=== PATIENT | male | born 1960 | race Caucasian/White ===

== ENCOUNTER 2024-01-19 07:41 | Outpatient (CLI) | payer OTHER, SELFPAY ==
--- NOTE | 2024-01-22 19:55 | WPDHOMESLEEP ---
Sleep Study - Home Unattended Date of Study: 01/19/24 Ordering Provider: John Swanson, Interpreting Provider: Zoya Brown MD Home Sleep Study Type: Watch PAT Height: 1.7 m Weight: 136.078 kg Body Mass Index: 47.0 Neck Circumference (inches): 23 [place]: 9 Reason for Sleep Study Poor quality sleep, excessive daytime sleepiness, frequent night time awakenings Sleep History Toñito Hampton is a 63 year-old man with frequent nighttime awakenings and excessive daytime sleepiness. His mother had obstructive sleep apnea. The patient frequently awakens from sleep feeling short of breath. He does not awaken at night with heartburn, belching or coughing. He does not report snoring and no one tells him that he snores. He occasionally has trouble sleeping when he has a cold. He rarely wakes up gasping for breath at night. He frequently has breathing problems at night witnessed by others. He frequently sweats excessively at night. He occasionally falls asleep during the day, rarely falls asleep involuntarily, although he never falls asleep while driving. He rarely has loss of muscle tone with strong emotion. He does not have daytime difficulties due to excessive sleepiness. He rarely feels paralyzed on waking or falling asleep. He occasionally has vivid dreamlike scenes upon awakening or falling asleep. He rarely feels afraid to go to sleep. He denies having nightmares. He rarely remembers his dreams. He rarely has racing thoughts. He rarely feels sad or depressed. He does not notice parts of his body jerking nor does he kick at night. He constantly has crawling aching feelings in his legs and leg pain during the night. He does not have morning jaw pain. He constantly is bothered by pain during the day, constantly bothered by pain during the night which awakens him. He frequently wakes up feeling stiff in the morning. He constantly has sore, achy muscles and pain in the neck and spine. He has some memory problems, sexual problems, and headaches. Normal bedtime is 11:00 p.m. taking 1/2 hour to fall asleep typically waking between 2 and 3 times for 10-15 minutes to go to the bathroom. His normal wake time is 4:30 a.m.. On weekends, he goes to bed later, between 1:00 a.m. and 2:00 a.m. and his wake time is 8:00 a.m.. He sleeps longer on the weekends because he does not have to work. He does not take naps. On awakening he is drowsy for 3 hours or longer. He feels better in the morning compared to other times a day. Habits: Tobacco: former smoker Caffeine: 2 servings a day Alcohol: He drinks alcohol socially, not daily [facility] Past Medical History Medical History (Updated 01/22/24 @ 20:16 by Zoya Brown MD) Diabetes mellitus Elevated liver function tests Hypertension Osteoarthritis Surgical History Surgical History (Updated 10/30/23 @ 07:59 by Zuly Dillard CMA) History of hand surgery History of shoulder surgery Family History Family History (Updated 10/30/23 @ 07:59 by Zuly Dillard CMA) Mother Cancer Diabetes mellitus Father Cancer Social History Social History (Updated 10/30/23 @ 08:00 by Zuly Dillard CMA) Smoking status: Former smoker Alcohol intake: current Alcohol use details: socially Substance use type: does not use Do You Feel Safe in your Home?: Yes Lack of Transportation: No Current Housing: I Have Housing Concerned About Future Housing: No Difficulty Paying Gas/Electric Bills: No Difficulty Paying for Meds: Decline to Answer Currently Unemployed: No Education: High School Diploma/GED Difficulty w/ Childcare or Family Care: No Medications Home Medications Medication Instructions Recorded Confirmed Type ibuprofen 200 mg capsule 200 mg PO Q6H PRN 10/30/23 10/30/23 History naproxen sodium 220 mg capsule 220 mg PO BID PRN 10/30/23 10/30/23 History (Aleve) Sleep Procedure T
[2024-01-22 20:23] VITALS: BMI 47.0
== END 2024-01-21 10:47 | disposition home or self-care (01) ==
LOC: ANHCSM 07:43
PROVIDERS: PCP Internal Medicine; Visit Provider Internal Medicine
DX: G47.33 Obstructive sleep apnea (adult) (pediatric) (principal); G47.31 Primary central sleep apnea; G25.81 Restless legs syndrome; Z87.891 Personal history of nicotine dependence; Z79.1 Long term (current) use of non-steroidal anti-inflammatories (NSAID)
CPT/HCPCS: 95800

== ENCOUNTER 2024-03-29 14:45 | Outpatient (RCR) | payer OTHER, SELFPAY ==
[2023-12-30 09:32] VITALS: BMI 48.3
[2023-12-30 09:35] VITALS: BMI 48.3
[2024-01-26 15:00] VITALS: BMI 48.0
[2024-01-26 15:01] VITALS: BMI 48.0
[2024-02-23 14:45] VITALS: BMI 48.0
[2024-03-29 15:15] VITALS: BMI 43.8
== END 2024-03-29 23:59 | disposition home or self-care (01) ==
LOC: ANHDMC 14:45
PROVIDERS: PCP Internal Medicine; Visit Provider Internal Medicine
DX: E11.9 Type 2 diabetes mellitus without complications (principal); Z71.3 Dietary counseling and surveillance
CPT/HCPCS: 97802; 97803

== ENCOUNTER 2024-04-14 09:39 | Outpatient (CLI) | payer OTHER, SELFPAY ==
--- NOTE | 2024-05-12 08:11 | P.SLEEP_ITS ---
Sleep Study Date of Study: 04/14/24 Ordering Provider: John Swanson, Interpreting Physician: Marya Blanco DO Sleep Study Type: CPAP Titration Height: 1.7 m Weight: 127.006 kg Body Mass Index: 43.8 Neck Circumference (inches): 20.25 [place]: 9 Reason for Sleep Study The patient had a WatchPAT home sleep study on 01/19/2024 that showed an overall AHI of 83 with a central apnea index of 15.3. Sleep History Toñito Hampton is a 63 year-old man with frequent nighttime awakenings and excessive daytime sleepiness. His mother had obstructive sleep apnea. The patient frequently awakens from sleep feeling short of breath. He does not awaken at night with heartburn, belching or coughing. He does not report snoring and no one tells him that he snores. He occasionally has trouble sleeping when he has a cold. He rarely wakes up gasping for breath at night. He frequently has breathing problems at night witnessed by others. He frequently sweats excessively at night. He occasionally falls asleep during the day, rarely falls asleep involuntarily, although he never falls asleep while driving. He rarely has loss of muscle tone with strong emotion. He does not have daytime difficulties due to excessive sleepiness. He rarely feels paralyzed on waking or falling asleep. He occasionally has vivid dreamlike scenes upon awakening or falling asleep. He rarely feels afraid to go to sleep. He denies having nightmares. He rarely remembers his dreams. He rarely has racing thoughts. He rarely feels sad or depressed. He does not notice parts of his body jerking nor does he kick at night. He constantly has crawling aching feelings in his legs and leg pain during the night. He does not have morning jaw pain. He constantly is bothered by pain during the day, constantly bothered by pain during the night which awakens him. He frequently wakes up feeling stiff in the morning. He constantly has sore, achy muscles and pain in the neck and spine. He has some memory problems, sexual problems, and headaches. Normal bedtime is 11:00 p.m. taking 1/2 hour to fall asleep typically waking between 2 and 3 times for 10-15 minutes to go to the bathroom. His normal wake time is 4:30 a.m.. On weekends, he goes to bed later, between 1:00 a.m. and 2:00 a.m. and his wake time is 8:00 a.m.. He sleeps longer on the weekends because he does not have to work. He does not take naps. On awakening he is drowsy for 3 hours or longer. He feels better in the morning compared to other times a day. Habits: Tobacco: former smoker Caffeine: 2 servings a day Alcohol: He drinks alcohol socially, not daily [facility] Past Medical History Medical History Elevated liver function tests Osteoarthritis Diabetes mellitus Hypertension Surgical History Surgical History History of shoulder surgery History of hand surgery Family History Family History Mother Cancer Diabetes mellitus Father Cancer Social History Social History Smoking status: Former smoker Alcohol intake: current Alcohol use details: socially Substance use type: does not use Do You Feel Safe in your Home?: Yes Lack of Transportation: No Lack of Food: Never True Current Housing: I Have Housing Concerned About Future Housing: No Difficulty Paying Gas/Electric Bills: No Difficulty Paying for Meds: No Currently Unemployed: No Education: High School Diploma/GED Difficulty w/ Childcare or Family Care: No Spiritual care concerns: No Medications Home Medications ?Medication ?Instructions ?Recorded ?Confirmed ?Type ibuprofen 200 mg capsule 200 mg PO Q6H PRN 10/30/23 02/16/24 History naproxen sodium 220 mg capsule 220 mg PO BID PRN 10/30/23 02/16/24 History (Aleve) atorvastatin 10 mg tablet mg PO 02/10/24 02/16/24 History losartan 50 mg-hydrochlorothiazide tablet PO 02/10/24 02/16/24 History 12.5 mg tablet metformin 500 mg tablet mg PO 02/10/24 02/16/24 History semaglutide 0.25 mg or 0.5 mg (2 mg subcut 02/10/24 02/16/24 History mg/3 mL) subcutaneous pen injector (Ozempic) Sleep Procedure A full night CPAP Titration using the [employer] multi-channel system recorded the standard physiologic parameters including EEG, EOG, submentalis EMG, anterior tibialis EMG, EKG, body position, nasal and oral airflow using nasal pressure sensor and thermistor.? Respiratory parameters of chest and abdominal movements were recorded with Respiratory Inductance Plethysmography belts. Oxygen saturation was recorded by pulse oximetry. Video monitoring was also performed. Sleep stages, periodic limb movements, and EEG arousals were scored in 30 second epochs according to the criteria of the AASM Scoring Manual. The Apnea-Hypopnea Index was calculated using [facility] guidelines for definition of hypopnea with 4% O2 desaturations while scoring respiratory events. Sleep Architecture The total recording time was 443.8 minutes.? The total sleep time was 355.5 minutes. Sleep latency was 6.3 minutes. REM latency was 154.5 minutes. Sleep efficiency was 80.1%. The patient had 27 awakenings for an awakening index of 4.6. Wake after Sleep Onset time was 82.0 minutes. The patient spent 41.5 cecy dalila, 11.7% of total sleep time in Stage N1. The patient spent 246.5 minutes, 69.3% in Stage N2. The patient spent 0.0 minutes, 0.0% in Stage N3. The patient spent 67.5 minutes, 19.0% in Stage REM. Respiratory Analysis The patient had 35 hypopneas and 1 mixed apnea for an overall Apnea Hypopnea Index of 6.1 events per hour. The REM Apnea Hypopnea Index was 15.1. The NREM Apnea Hypopnea Index was 4.0. The patient had a Central Apnea Hypopnea Index of 0. There was no evidence of Az-Kirk Respirations. The patient was started on CPAP 5 cm H2O and titrated to CPAP 17 cm H2O due to hypopneas. The patient was able to fall asleep starting on CPAP 5 cm H2O. The patient was able to achieve REM sleep starting on CPAP 9 cm H2O. The patient's sleep apnea improved significantly when titrated to 15 cm H2O. On CPAP 15 cm H2O, the patient spent 77 minutes in NREM and 1 minute in REM with 9 hypopneas, resulting in an AHI of 6.9. The patient had a sleep efficiency of 92.9% on this pressure setting. Arousals There were 115 total arousals for an arousal index of 19.4. There were 32 spontaneous arousals for an index of 5.4. ?There were 10 arousals due to respiratory events for an index of 1.7. There were 60 arousals due to periodic limb movements for an index of 10.1.? There were 14 arousals due to isolated limb movements for an index of 2.4. Periodic Limb Movements The patient had 16 isolated limb movements with an index of 2.7. The patient had 526 periodic limb movements with index of 88.8, which is elevated (normal <15). Patient had a total of 542 limb movements with a total limb movement index of 91.5. Oximetry Data The patient had an average oxygen saturation of 92.8% in sleep with a minimum oxygen saturation of 86.0% and a maximum oxygen saturation of 100.0%. The patient had 104 oxygen desaturations that were 4% or greater resulting in an Oxygen Desaturation Index of 17.6.? The patient spent 5.7 minutes, 1.3% of total sleep time with an oxygen saturation below 88%. Snoring Profile Mild snoring was present intermittently in the beginning of the study. Cardiac Profile The EKG showed normal sinus rhythm with frequent multifocal PVCs. The patient had an average pulse rate of 74.2 bpm with a minimum pulse rate of 61.0 bpm and a maximum pulse rate of 96.0 bpm. ? EEG Profile No signs of seizure activity seen. Assessment and Plan Assessment and Plan (1) Obstructive sleep apnea: Code(s): G47.33 - Obstructive sleep apnea (adult) (pediatric) Status: Acute Assessment and Plan: The patient was started on CPAP 5 cm H2O and titrated to CPAP 17 cm H2O due to hypopneas. I recommend that the patient be prescribed CPAP 15 cm H2O, size medium Resmed N30i nasal mask, CPAP filters/tubing and heated humidity. This should be used with all episodes of sleep.? Compliance should be reviewed within 31-90 days of starting therapy for usage greater than 4 hours per night greater than 70% of the nights. The patient should be asked about symptoms such as?excessive daytime sleepiness, quality of sleep, decreased nocturia, increased?mental functioning such as memory, mood, and concentration. (2) PLMD (periodic limb movement disorder): Code(s): G47.61 - Periodic limb movement disorder Status: Acute Assessment and Plan: The patient had a significant number of limb movements during the study with the majority being periodic in nature. Slightly greater than 10% of the periodic limb movements caused arousals in the patient's sleep.The patient has already been diagnosed with Restless Leg Syndrome. I recommend that the patient have a serum ferritin drawn for evaluation of iron deficiency anemia. If the patient christensen s a serum ferritin less than 75 ng/mL, I recommend starting a daily iron supplement and a Vitamin C supplement for better absorption. If the serum ferritin is greater than 75 ng/mL, I recommend starting a dopamine agonist and titrating the dose until symptoms resolve. There are nonpharmacological methods to treat limb movements including daily exercise, stretching calf muscles before bed, avoiding excessive amounts of caffeine and alcohol, vitamin B supplementation, magnesium lotion massaged into legs before bed, and use of a weighted blanket. Data The data obtained during this sleep study is adequate for interpretation. Certification This sleep study has been reviewed by a board certified sleep medicine physician.
[2024-05-16 13:05] VITALS: BMI 43.8
== END 2024-04-15 19:24 | disposition home or self-care (01) ==
LOC: ANHCSM 09:42
PROVIDERS: PCP Internal Medicine; Visit Provider Internal Medicine
DX: G47.33 Obstructive sleep apnea (adult) (pediatric) (principal); G47.61 Periodic limb movement disorder
CPT/HCPCS: 95811